=== PATIENT | female | born 1930 | race Caucasian/White ===

== ENCOUNTER 2017-11-23 19:36 | Inpatient (IN) | payer MEDICARE ==
[~2017-11-23] VITALS: Ht 157.5 cm; Wt 61.2 kg
--- NOTE | 2017-11-23 19:59 | NUR ---
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 PER PT HIT HEAD AGAINST CABINET. HAD LEFT CATARACT SURGERY THIS AM. PER EMS, PT RECEIVED ZOFRAN 4MG IV GASOLINE FINISHER D/T PT FEELING NAUSEA. PT DENIES V/D, -DIZZINESS. SKIN WNL. NO OBVIOUS BRUISING OR BLEEDING NOTED. RESP EVEN AND UNLABORED. VSS. NO S/S OF ACUTE DISTRESS NOTED. PT PLACED ON ORACLE CONSULTANT AND POX. PT SAFETY AND COMFORT MEASURES IN PLACE. AWAITING MD FOR EVAL
[2017-11-23 20:19] LABS: BASOPHILS % (AUTO) 0.3 % (0.0-2.0); EOSINOPHILS % (AUTO) 3.1 % (0.0-6.0); HEMATOCRIT 34 % (33-45); HEMOGLOBIN 11.6 g/dL (11.5-14.8); LYMPHOCYTES # (AUTO) 1.8 /CMM (0.8-4.8); LYMPHOCYTES % (AUTO) 14.7 % (20.0-44.0); MEAN CORPUSCULAR HGB CONC 34 g/dl (31.0-36.0); MEAN CORPUSCULAR VOLUME 94 fL (82-100); MONOCYTES # (AUTO) 1.5 /CMM (0.1-1.30); MONOCYTES % (AUTO) 12.1 % (2.0-12.0); NEUTROPHILS # (AUTO) 8.6 /CMM (1.8-8.9); NEUTROPHILS % (AUTO) 69.8 % (43.0-81.0); PLATELET COUNT (AUTO) 264 /CMM (150-450); RDW COEFFICIENT OF VARIATION 12.3 (11.5-15.0); RED BLOOD CELL COUNT(AUTO) 3.58 MIL/uL (4.0-5.2); WHITE BLOOD COUNT (AUTO) 12.3 K/uL (4.3-11.0)
[2017-11-23 20:45] LABS: CALCIUM, SERUM 10.8 mg/dL (8.5-10.1); CARBON DIOXIDE 21 mmol/L (21-32); CHLORIDE 103 mmol/L (98-107); CREATININE 1.3 mg/dL (0.6-1.3); GLUCOSE 136 mg/dL (74-106); INR 0.98 (0.85-1.15); POTASSIUM 3.3 mmol/L (3.5-5.1); SODIUM SERUM 136 mmol/L (136-145); UREA NITROGEN, BLOOD 17 mg/dL (7-18)
--- NOTE | 2017-11-23 20:46 | NUR ---
PT TO CT
--- NOTE | 2017-11-23 20:47 | NUR ---
ASSIGNED TO [facility]#: [id number], DX: SYNCOPE, ACCEPTING: ALICIA JACKSON.
[2017-11-23 20:48] LABS: TROPONIN I < 0.017 ng/mL (0.00-0.056)
--- NOTE | 2017-11-23 20:51 | NUR ---
PT BACK FROM CT
[2017-11-23] MEDS ORDERED: DONE5TAB34 PO (21:27)
[2017-11-23] MEDS ORDERED: MELA5TAB PO (21:27)
[2017-11-23] MEDS ORDERED: ATEN50TA PO ×2 (21:27)
[2017-11-23] MEDS ORDERED: ASPI-605 PO (21:27)
[2017-11-23] MEDS ORDERED: LOSA100T3 PO (21:27)
[2017-11-23] MEDS ORDERED: GABA600T PO (21:27)
[2017-11-23] MEDS ORDERED: ESOM40CA PO (21:27)
[2017-11-23] MEDS ORDERED: FENO135C PO (21:27)
[2017-11-23] MEDS ORDERED: AMLO10TA4 PO (21:27)
[2017-11-23] MEDS ORDERED: CHOL100040 PO (21:27)
[2017-11-23] MEDS ORDERED: POTASSIUM CHLORIDE 20 MEQ TAB.PRT.SR PO ONE (21:30)
--- NOTE | 2017-11-23 21:42 | NUR ---
REPORT GIVEN TO LEVI SHAIKH FOR NALDO.
[2017-11-23 21:55] VITALS: BP 147/59
--- NOTE | 2017-11-23 21:55 | NUR ---
TELE/SUBSTANCE ABUSE NURSE; ADMITTED 87 YEARS OLD FEMALE PT FROM ER ACCOMPANIED BY ER MALE STAFF AND PT'S AND SON. DX; SYNCOPE AND POSSIBLY VASOVAGAL REACTION. PT A/O X 3. PLACED ON TELEMETRY. HL INTACT. PT WITH SOME SKIN DISCOLORATION ON HER LEGS, NATE. BREAST FOLDS, LT ELBOW BRUISE, HEELS REDNESS, LT HAND DRIED SCAB BUT PT REFUSED FOR PHOTOS. VOIDED TO THE BATHROOM. DENIES PAIN NOR DIZZINESS.
[2017-11-23] MEDS ORDERED: IV NS 0.9% 1,000 ML IV PRN (23:15)
[2017-11-23] MEDS ORDERED: HYDROCODONE/APAP 5/325MG 1 EACH TABLET PO PRN (23:30)
[2017-11-23] MEDS ORDERED: MAG HYDROX/AL HYDROX/SIMETH 30 ML UDC PO PRN (23:30)
[2017-11-23] MEDS ORDERED: TEMAZEPAM 15 MG CAPSULE PO PRN (23:30)
[2017-11-23] MEDS ORDERED: ACETAMINOPHEN 325 MG TABLET PO PRN (23:30)
[2017-11-23] MEDS ORDERED: MAGNESIUM HYDROXIDE 30 ML UDC PO PRN (23:30)
[2017-11-23] MEDS ORDERED: ONDANSETRON HCL/PF 4 MG/2 ML VIAL IVP PRN (23:30)
[2017-11-24] VITALS: BP 134/58
[2017-11-24 04:00] VITALS: BP 142/57
[2017-11-24 06:35] LABS: BASOPHILS % (AUTO) 0.4 % (0.0-2.0); EOSINOPHILS % (AUTO) 3.4 % (0.0-6.0); HEMATOCRIT 32 % (33-45); LYMPHOCYTES % (AUTO) 17.6 % (20.0-44.0); MEAN CORPUSCULAR HGB CONC 34 g/dl (31.0-36.0); MEAN CORPUSCULAR VOLUME 100 fL (82-100); MONOCYTES # (AUTO) 1.2 /CMM (0.1-1.30); MONOCYTES % (AUTO) 10.4 % (2.0-12.0); NEUTROPHILS # (AUTO) 7.8 /CMM (1.8-8.9); NEUTROPHILS % (AUTO) 68.2 % (43.0-81.0); PLATELET COUNT (AUTO) 236 /CMM (150-450); RED BLOOD CELL COUNT(AUTO) 3.24 MIL/uL (4.0-5.2); WHITE BLOOD COUNT (AUTO) 11.4 K/uL (4.3-11.0)
[2017-11-24 06:47] LABS: CALCIUM, SERUM 10.3 mg/dL (8.5-10.1); CARBON DIOXIDE 18 mmol/L (21-32); CHLORIDE 107 mmol/L (98-107); CREATININE 1.1 mg/dL (0.6-1.3); GLUCOSE 94 mg/dL (74-106); MAGNESIUM 2.1 mg/dL (1.8-2.4); PHOSPHORUS 3.2 mg/dL (2.5-4.9); SODIUM SERUM 137 mmol/L (136-145); UREA NITROGEN, BLOOD 17 mg/dL (7-18)
[2017-11-24 07:03] LABS: CHOLESTEROL 102 mg/dL (<200); HDL CHOLESTEROL 36 mg/dL (40-60); LDL 50 mg/dL (0-99); THYROID STIMULATING HORMONE 1.533 uIU/mL (0.358-3.74); TRIGLYCERIDES 129 mg/dL (30-150)
--- NOTE | 2017-11-24 07:15 | NUR ---
TELE/PAPERBOARD BOXES ESTIMATOR; PT ON SR ON 99. IVF ON PROGRESS. VOIDED TO THE BATHROOM WITH HELP. SLEPT ON AND OF. WILL ENDORSE TO THE DAY SHIFT NURSE.
[2017-11-24] MEDS ORDERED: PANTOPRAZOLE 40 MG TABLET.DR PO SCH (07:30)
--- NOTE | 2017-11-24 07:45 | NUR ---
CLINICAL QUALITY ANALYST OPENING NOTE PATIENT RESTING COMFORTABLY AT THIS TIME. NO FACIAL GRIMACING NOTED FOR PAIN. NO SOB OR DISTRESS NOTED, ON ROOM AIR TOLERATIGN WELL. ABLE TO COMMUNICATE NEEDS. IV INTACT AND PATENT WITH IV FLUIDS RUNNING AT 75 ML/HR TOLERATING WELL. CALL LIGHT WITHIN REACH. SAFETY MEASURES IMPLEMENTED. Addendum: 11/24/17 at 1309 by RELL SANDOVAL RN WILL CONTINUE TO MONITOR THROUGHOUT SHIFT
[2017-11-24 08:00] VITALS: BP 146/70
[2017-11-24] MEDS: GABAPENTIN 400 MG CAPSULE PO SCH ×2 (08:55→12:22)
[2017-11-24] MEDS ORDERED: DONEPEZIL 5 MG TABLET PO SCH (09:00)
[2017-11-24] MEDS ORDERED: LOSARTAN POTASSIUM 50 MG TABLET PO SCH (09:00)
[2017-11-24] MEDS ORDERED: AMLODIPINE BESYLATE 10 MG TABLET PO SCH (09:00)
[2017-11-24] MEDS ORDERED: ASPIRIN EC 81 MG TABLET.DR PO SCH (09:00)
[2017-11-24] MEDS ORDERED: FENOFIBRATE NANOCRYS (145 MG) 145 MG TABLET PO SCH (09:00)
[2017-11-24] MEDS ORDERED: CHOLECALCIFEROL 1,000 UNIT TABLET (VIT D3) PO SCH (09:00)
[2017-11-24] MEDS ORDERED: ATENOLOL 50 MG TABLET PO SCH ×2 (09:00)
[2017-11-24] MEDS ORDERED: ONDANSETRON 4 MG TAB.RAPDIS SL PRN (10:00)
[2017-11-24] MEDS ORDERED: IV NS 0.9% 1,000 ML IV SCH (10:08)
[2017-11-24 11:35] VITALS: BP_SYST 118; BP_SYST 122; BP_SYST 126; BP_DIAS 56; BP_DIAS 62; BP_DIAS 78
--- NOTE | 2017-11-24 13:10 | NUR ---
STUDENT COUNSELORAUTHORIZATION MANAGER NOTE PATIENT IS DISCHARGED TO HOME. CONTINUE ALL MEDICATIONS AT HOME PRESCRIBED BY MD. ALL DUE MEDICATIONS GIVEN ORDERED. ALL NURSING CARE NEEDS ATTENDED TO NEEDED. IV REMOVED,SKIN INTACT. PATIENT REFUSED SKIN DOCUMENTATION UPON ADMISSION AND DISCHARGE. ALL BELONGINGS ACCOUNTED FOR UPON DISCHARGE. ABLE TO COMMUNICATE NEEDS. ALL DISCHARGE INSTRUCTIONS GIVEN TO PATIENT AND AT BEDSIDE, BOTH ABLE TO RETURN INSTRUCTIONS BACK. FOLLOW UP WITH PRIMARY CARE PHYSICIAN OUTPATIENT. LEFT VIA PRIVATE CAR WITH .
== END 2017-11-24 13:01 | disposition home or self-care (01) | DRG 74 ==
LOC: ER 19:41 → TELE 21:45 → MED 11-24 10:43
PROVIDERS: ADMIT Nurse Practitioner Acute Care; ATTEND Nurse Practitioner Acute Care
DX: G90.8 Other disorders of autonomic nervous system (principal); E87.6 Hypokalemia; D72.829 Elevated white blood cell count, unspecified; G62.9 Polyneuropathy, unspecified; I10 Essential (primary) hypertension; E78.5 Hyperlipidemia, unspecified; E11.65 Type 2 diabetes mellitus with hyperglycemia; F03.90 Unspecified dementia, unspecified severity, without behavioral disturbance, psychotic disturbance, mood disturbance, and anxiety; Z96.649 Presence of unspecified artificial hip joint; Z87.891 Personal history of nicotine dependence; Z88.0 Allergy status to penicillin; E83.52 Hypercalcemia; W18.30XA Fall on same level, unspecified, initial encounter; Y92.89 Other specified places as the place of occurrence of the external cause
CPT/HCPCS: 36415; 70450-TC; 80048-TC; 80061-TC; 82962-TC; 83735-TC; 84100-TC; 84443-TC; 84484-TC; 85025-TC; 85730-TC; 87081-TC; 93307-TC; A4606; J7030; Z7610

== ENCOUNTER 2017-12-06 05:32 | Emergency (ER) | payer MEDICARE, BC ==
[~2017-12-06] VITALS: Ht 160 cm; Wt 62.1 kg
[~2017-12-06 05:32] MED LIST: AMLO10TA4 PO; ASPI-605 PO; ATEN50TA PO; CHOL100040 PO; DONE5TAB34 PO; ESOM40CA PO; FENO135C PO; GABA600T PO; LOSA100T3 PO; MELA5TAB PO
--- NOTE | 2017-12-06 05:55 | NUR ---
BIBRA 99 C/O ABD PAIN [id number] SALES AND MARKETING REPRESENTATIVE S/P USING RESTROOM. PT'S STATES HE ASSISTED THE PT TO THE FLOOR PREVENTING ANY TRAUMA TO THE PT. PT DENIES N/V/D. NORMAL BM'S. PT IS AAOX4. -DYSURIA. SKIN WNL. VSS. NO S/S OF ACUTE DISTRESS NOTED. RESP EVEN AND UNLABORED. PT PLACED ON RETAIL DEPARTMENT MANAGER AND POX. PT SAFETY AND COMFORT MEASURES IN PLACE. BEDSIDE FOR EVAL
--- NOTE | 2017-12-06 05:58 | NUR ---
EMT BEDSIDE FOR EKG
[2017-12-06 06:14] LABS: BASOPHILS # (AUTO) 0.1 /CMM (0.0-0.2); BASOPHILS % (AUTO) 0.5 % (0.0-2.0); EOSINOPHILS % (AUTO) 2.7 % (0.0-6.0); HEMATOCRIT 32 % (33-45); HEMOGLOBIN 10.8 g/dL (11.5-14.8); LYMPHOCYTES # (AUTO) 2.3 /CMM (0.8-4.8); MEAN CORPUSCULAR HGB CONC 34 g/dl (31.0-36.0); MEAN CORPUSCULAR VOLUME 98 fL (82-100); MONOCYTES # (AUTO) 1.6 /CMM (0.1-1.30); NEUTROPHILS # (AUTO) 13.3 /CMM (1.8-8.9); NEUTROPHILS % (AUTO) 74.8 % (43.0-81.0); PLATELET COUNT (AUTO) 299 /CMM (150-450); RDW COEFFICIENT OF VARIATION 12.7 (11.5-15.0); RED BLOOD CELL COUNT(AUTO) 3.23 MIL/uL (4.0-5.2); WHITE BLOOD COUNT (AUTO) 17.8 K/uL (4.3-11.0)
[2017-12-06 06:22] LABS: APPEARANCE,URINE SL CLOUDY (CLEAR); BILIRUBIN,URINE NEGATIVE (NEGATIVE); BLOOD, URINE NEGATIVE Ery/uL (NEGATIVE); COLOR,URINE YELLOW (YELLOW); KETONES,URINE NEGATIVE (NEGATIVE); LEUKOCYTE ESTERASE ,URINE NEGATIVE (NEGATIVE); NITRITE, URINE NEGATIVE (NEGATIVE); PH,URINE 7.5 (5.0-8.0); PROTEIN,URINE NEGATIVE (NEGATIVE); UGLUCOSE NEGATIVE (NEGATIVE); UROBILINOGEN,URINE 0.2 EU/dL (0.2)
[2017-12-06 06:35] LABS: ALANINE AMINOTRANSFERASE 27 U/L (12-78); ALKALINE PHOSPHATASE 52 U/L (46-116); ASPARTATE AMINOTRANSFERASE 14 U/L (15-37); BILIRUBIN,DIRECT 0.1 mg/dL (0.0-0.2); BILIRUBIN,TOTAL 0.3 mg/dL (0.2-1.0); CALCIUM, SERUM 10.3 mg/dL (8.5-10.1); CARBON DIOXIDE 24 mmol/L (21-32); CHLORIDE 95 mmol/L (98-107); CREATININE 1.1 mg/dL (0.6-1.3); GLUCOSE 119 mg/dL (74-106); POTASSIUM 3.5 mmol/L (3.5-5.1); SODIUM SERUM 129 mmol/L (136-145); TOTAL PROTEIN, SERUM 7.7 g/dL (6.4-8.2); UREA NITROGEN, BLOOD 13 mg/dL (7-18)
[2017-12-06 06:37] LABS: TROPONIN I < 0.017 ng/mL (0.00-0.056)
--- NOTE | 2017-12-06 07:23 | NUR ---
REPORT GIVEN TO KRISTINA WEAVER FOR NALDO.
[2017-12-06 08:39] VITALS: BP 141/64
--- NOTE | 2017-12-06 08:40 | NUR ---
Patient discharged to home in stable condition. Written and verbal after care instructions given. Patient verbalizes understanding of instruction.
== END 2017-12-06 08:40 | disposition home or self-care (01) ==
LOC: ER 05:34
DX: R55 Syncope and collapse (principal); E87.1 Hypo-osmolality and hyponatremia; I10 Essential (primary) hypertension; E87.6 Hypokalemia; Z79.82 Long term (current) use of aspirin; Z88.0 Allergy status to penicillin
CPT/HCPCS: 36415; 80048; 80076; 81001; 84484; 85025; 86850; 87086; 93005; 99285; A4606; 81000-TC; Z7610